=== PATIENT | male | born 1975 | race Caucasian/White ===

== ENCOUNTER → 2020-11-06 | Day surgery (SDC) | payer OTHER ==
[~2020-11-06] VITALS: Ht 193 cm; Wt 113.4 kg
[~2020-11-06] MED LIST: LOVAZA1 GM PO
== END | disposition home or self-care (01) ==
LOC: FAS 10:18
DX: Z12.11 Encounter for screening for malignant neoplasm of colon (principal); Z83.71 Family history of colonic polyps
CPT/HCPCS: J2250; J2704; J7120

== ENCOUNTER 2021-02-17 06:39 | Emergency (ER) | payer OTHER ==
[2021-02-17 07:16] LABS: BASOPHIL 0.5 % (0-2); EOSINOPHIL 2.1 % (0-5); HCT 54.4 % (42.0-52.0); HGB 18.3 g/dl (13.2-18.0); LYMPHOCYTE 37.1 % (15-48); MCH 28.8 pg (25.0-31.0); MCHC 33.6 g/dL (32.0-36.0); MCV 85.5 fL (78.0-100.0); MONOCYTE 9.7 % (0-12); MPV 9.1 fL (6.0-9.5); NEUTROPHIL 50.1 % (41-80); NRBC 0; PLT 313 K/uL (150-400); RBC 6.36 M/uL (4.70-6.00); RDW 13.6 % (11.5-14.0); WBC 6.6 K/uL (4.0-10.5)
[2021-02-17 07:19] LABS: INR 1.09 (0.9-1.2); PROTHROMBIN TIME 13.5 SECONDS (11.8-13.4); PTT 24.9 SECONDS (24.4-34.7)
[2021-02-17 07:29] LABS: ALBUMIN 3.7 g/dL (3.4-5.0); BILIRUBIN - TOTAL 0.9 mg/dL (0.2-1.0); BUN/CREAT RATIO (CALC) 11.6 RATIO; CREATININE 1.46 mg/dL (0.67-1.17); POTASSIUM 3.6 mmol/L (3.5-5.1); TOTAL PROTEIN 7.7 g/dL (6.4-8.2)
[2021-02-17] MEDS ORDERED: ANTIVERT25 MG PO (07:32)
[2021-02-17] MEDS ORDERED: ONDANSETRON ODT4 MG PO (07:33)
== END 2021-02-17 08:54 | disposition home or self-care (01) ==
LOC: FER 06:39
PROVIDERS: Emergency Medicine Emergency Medical Services
DX: H81.11 Benign paroxysmal vertigo, right ear (principal); R94.31 Abnormal electrocardiogram [ECG] [EKG]
CPT/HCPCS: 36415; 70450; 71045; 80053; 82550; 84484; 85025; 85610; 85730; 86140; 93005; J2405; J7030